=== PATIENT | female | born 1985 | race Caucasian/White ===

== ENCOUNTER 2023-03-16 15:44 | Emergency (ER) | payer SELFPAY ==
--- NOTE | 2023-03-16 16:05 | EDPHYS ---
Physician Documentation [facility] Name: Sulema Montanez Age: 37 yrs Sex: Female : 1985 Arrival Date: 03/16/2023 Time: 15:44 Bed 3 Private MD: ED Physician Nayan Shah HPI: 03/16 15:49 This 37 yrs old Female presents to ER via Unassigned with complaints of chest pain. ms3 15:49 37-year-old female with past medical history of depression hypertensionoff her ms3 medications for 3 days presents via [facility] for chest pain. Patient states her chest pain began earlier this morning. Patient rates her pain currently a 2/10 and describes the pain as pressure located substernally. EMS notes patient's blood pressure was initially 230/122. 324 mg aspirin, 0.4 mg sublingual nitroglycerin were administered with improvement of patient's symptoms. Patient notes she did use methamphetamines this morning.. Historical: - Allergies: 15:49 No Known Allergies; ph - PMHx: 15:49 Hypertensive disorder; ph - Immunization history:: Adult Immunizations unknown. - Social history:: Smoking status: Patient reports the use of cigarette tobacco products, Reported history of juuling and/or vaping. ROS: 16:01 Constitutional: Negative for fever, and chills. Neck: Negative for injury, pain, and ms3 swelling, Respiratory: Negative for shortness of breath, cough, wheezing, and pleuritic chest pain, Abdomen/GI: Negative for abdominal pain, nausea, vomiting, diarrhea, and constipation, MS/Extremity: Negative for injury and deformity, Skin: Negative for injury, rash, and discoloration, 16:01 All other systems are negative, Exam: 16:01 Constitutional: This is a well developed, well nourished patient who is awake, alert, ms3 and in no acute distress. Head/Face: Normocephalic, atraumatic. Neck: Trachea midline, no cervical lymphadenopathy. Supple, full range of motion without nuchal rigidity, or vertebral point tenderness. No Meningismus. Chest/axilla: Normal chest wall appearance and motion. Nontender with no deformity. Cardiovascular: Regular rate and rhythm with a normal S1 and S2. No gallops, murmurs, or rubs. Normal PMI, no JVD. No pulse deficits. Respiratory: Lungs have equal breath sounds bilaterally, clear to auscultation and percussion. No rales, rhonchi or wheezes noted. No increased work of breathing, no retractions or nasal flaring. Abdomen/GI: Soft, non-tender, with normal bowel sounds. No distension or tympany. No guarding or rebound. No evidence of tenderness throughout. Skin: Warm, dry with normal turgor. Normal color with no rashes, no lesions, and no evidence of cellulitis. MS/ Extremity: Pulses equal, no cyanosis. Neurovascular intact. Full, normal range of motion. Vital Signs: 15:46 BP 217 / 126; Pulse 96; Resp 18; Temp 97.5; Pulse Ox 99% on R/A; Weight 58.97 kg; ph Height 5 ft. 2 in. ; 15:46 Body Mass Index 23.78 (58.97 kg, 157.48 cm) ph MDM: 15:49 Patient medically screened. ms3 16:01 Differential diagnosis: abnormal EKG, acute myocardial infarction, coronary artery ms3 disease. Data reviewed: vital signs, nurses notes. Test considered but Not performed: EKG: Patient declined and left. Labs: Patient declined and left. X-ray: Patient declined and left. Counseling: I had a detailed discussion with the patient and/or guardian regarding. Refusal of service: The patient/guardian displays adequate decision making capability and despite a detailed discussion of alternatives, benefits, risks, and consequences refuses: all lab tests, all X-rays. 03/16 15:49 Order name: EKG - Nurse/Tech; Complete Time: 18:03 ms3 03/16 15:49 Order name: O2 Per Protocol; Complete Time: 15:51 ms3 03/16 15:49 Order name: O2 Sat Monitoring; Complete Time: 15:51 ms3 Administered Medications: 18:02 Not Given (Patient Eloped): ativan1 mg IVP once ph 18:02 Not Given (Patient Eloped): [id number] mg IVP once ph Disposition Summary: 03/16/23 16:05 Discharge Ordered Notes: Location: Home ms3 Condition: Stable ms3 Diagnosis - Chest pain, unspecified ms3 - Essential (primary) hypertension ms3 - Adverse effect of amphetamines ms3 Followup: ms3 - With: Rene Cronin MD - When: 2 - 3 days - Reason: Recheck today's complaints Discharge Instructions: - Discharge Summary Sheet ms3 - Nonspecific Chest Pain, Adult ms3 Forms: - Medication Reconciliation Form ms3 - Thank You Letter ms3 - Antibiotic Education ms3 - Prescription Opioid Use ms3 - Patient Portal Instructions ms3 - Leadership Thank You Letter ms3 Signatures: Dispatcher [employer] EDMS Venecia Medrano RN RN ph Nayan Shah DO DO ms3 Corrections: (The following items were deleted from the chart) 15:59 15:50 Chest Single View+[email or web address] ordered. EDMS EDMS
--- NOTE | 2023-03-16 16:05 | ER ---
Nurse's Notes [facility] Name: Sulema Montanez Age: 37 yrs Sex: Female : 1985 Arrival Date: 03/16/2023 Time: 15:44 Bed 3 Private MD: Diagnosis: Chest pain, unspecified;Essential (primary) hypertension;Adverse effect of amphetamines Presentation: 03/16 15:46 Chief complaint: EMS states: 37 y/o female c/o chest pain and headache, hx of HTN and ph has not taken her medications in "a few days", 324 ASA and 0.4 nitro given, last BP 200s/100s. Coronavirus screen: Vaccine status: Patient reports receiving the 1st dose of the Covid vaccine. Ebola Screen: No symptoms or risks identified at this time. Initial Sepsis Screen: Does the patient meet any 2 criteria? No. Patient's initial sepsis screen is negative. Does the patient have a suspected source of infection? No. Patient's initial sepsis screen is negative. Risk Assessment: Do you want to hurt yourself or someone else? Patient reports no desire to harm self or others. Onset of symptoms was March 16, 2023. 15:46 [facility] Of [facility] 15:46 Acuity: DENILSON 2 ph Triage Assessment: 15:49 General: Appears in no apparent distress. Behavior is cooperative, appropriate for age, ph anxious. Pain: Complains of pain in chest and headache. Neuro: Level of Consciousness is awake, alert, obeys commands, Oriented to person, place, time, situation, Reports headache. Cardiovascular: Reports chest pain. Respiratory: Airway is patent Respiratory effort is even, unlabored. Derm: Skin is pink, warm \\T\\ dry. Historical: - Allergies: 15:49 No Known Allergies; ph - PMHx: 15:49 Hypertensive disorder; ph - Immunization history:: Adult Immunizations unknown. - Social history:: Smoking status: Patient reports the use of cigarette tobacco products, Reported history of juuling and/or vaping. Screenin:[facility] ED Fall Risk Assessment (Adult) History of falling in the last 3 months, ph including since admission No falls in past 3 months (0 pts) Confusion or Disorientation No (0 pts) Intoxicated or Sedated No (0 pts) Impaired Gait No (0 pts) Mobility Assist Device Used No (0 pt) Altered Elimination No (0 pt) Score/Fall Risk Level 0 - 2 = Low Risk Oriented to surroundings, Maintained a safe environment, Provided non-skid footwear, Hourly rounding (assess needs \\T\\ fall precautionary measures) done. Abuse screen: Denies threats or abuse. Denies injuries from another. Nutritional screening: No deficits noted. Tuberculosis screening: No symptoms or risk factors identified. Assessment: 16:03 Reassessment: Pt declining treatment. ph 16:05 Reassessment: Pt eloped. ph Vital Signs: 15:46 BP 217 / 126; Pulse 96; Resp 18; Temp 97.5; Pulse Ox 99% on R/A; Weight 58.97 kg; ph Height 5 ft. 2 in. ; 15:46 Body Mass Index 23.78 (58.97 kg, 157.48 cm) ph ED Course: 15:46 Patient arrived in ED. kc6 15:46 Venecia Medrano RN is Primary Nurse. ph 15:48 Nayan Shah DO is Attending Physician. ms3 15:49 Triage completed. ph 15:50 Patient has correct armband on for positive identification. Bed in low position. Call ph light in reach. Side rails up X 1. Client placed on continuous cardiac and pulse oximetry monitoring. NIBP monitoring applied. 15:51 Arm band placed on Patient placed in an exam room. ph 16:04 Rene Cronin MD is Referral Physician. ms3 16:05 No provider procedures requiring assistance completed. IV discontinued, intact, ph bleeding controlled, No redness/swelling at site. Pressure dressing applied. Administered Medications: 18:02 Not Given (Patient Eloped): ativan1 mg IVP once ph 18:02 Not Given (Patient Eloped): [id number] mg IVP once ph Medication: 15:51 VIS not applicable for this client. ph Outcome: 16:05 Discharge ordered by . ms3 16:05 Patient left the ED. ph 16:05 Discharged to home ph 16:05 Condition: stable 16:05 Instructed on follow up and referral plans. Signatures: Venecia Medrano RN RN Nayan Shah DO DO ms3 Haven Kolb RN RN kc6 Corrections: (The following items were deleted from the chart) 17:58 16:36 Patient left the ED. ph ph
[2023-03-16] MEDS ORDERED: HYDRALAZINE HCL 20 MG/ML VIAL ONE (16:06)
[2023-03-16] MEDS ORDERED: LORazepam 2 MG/ML VIAL ONE (16:06)
[2023-03-16 18:39] VITALS: BP 217/126; TEMP 97.5; O2SAT 99
== END 2023-03-16 16:36 | disposition home or self-care (01) ==
LOC: ER 15:44
DX: R07.9 Chest pain, unspecified (principal); T43.625A Adverse effect of amphetamines, initial encounter; I10 Essential (primary) hypertension; Z72.0 Tobacco use
CPT/HCPCS: 99283; J0360